=== PATIENT | male | born 1985 | race Caucasian/White ===

== ENCOUNTER 2019-03-31 07:31 | Inpatient (IN) | payer MEDICAID ==
[~2019-03-31] VITALS: Ht 170.2 cm; Wt 71.7 kg
[~2019-03-31 07:31] MED LIST: ALBU8.5H3 IH
[2019-03-31 08:04] LABS: BASOPHILS % (AUTO) 0.9 % (0.0-2.0); EOSINOPHILS % (AUTO) 0.9 % (1.0-6.0); HEMATOCRIT 44.3 % (41-53); HEMOGLOBIN 14.7 g/dL (13.5-17.5); LYMPHOCYTES # (AUTO) 2.5 K/uL (1.0-4.8); MEAN CORPUSCULAR HEMOGLOBIN 31.8 pg (26.0-34.0); MEAN CORPUSCULAR HGB CONC 33.3 G/dL (31.0-37.0); MEAN CORPUSCULAR VOLUME 95 fL (80-100); MONOCYTES # (AUTO) 0.5 K/uL (0.1-1.0); MONOCYTES % (AUTO) 5.9 % (2.0-9.0); NEUTROPHILS # (AUTO) 5.7 K/uL (1.8-7.7); NEUTROPHILS % (AUTO) 64.3 % (40.0-70.0); PLATELET COUNT (AUTO) 283 K/uL (150-450); RED BLOOD CELL COUNT(AUTO) 4.64 MIL/uL (4.50-5.90); RED CELL DISTRIBUTION WIDTH 14.3 % (11.5-14.5)
[2019-03-31 08:12] LABS: ANION GAP 14 mmol/L (8-16); CARBON DIOXIDE 21 mmol/L (22-29); CHLORIDE 102 mmol/L (98-107); GLUCOSE,RANDOM 114 mg/dL (70-110); POTASSIUM 3.7 mmol/L (3.5-5.1); SODIUM SERUM 137 mmol/L (136-145)
[2019-03-31 08:13] LABS: CALCIUM, TOTAL 9.1 mg/dL (8.8-10.5); CREATININE 1.12 mg/dL (0.60-1.30); GLOMERULAR FILTR. RATE CALC > 60 mL/min (>60); UREA NITROGEN, BLOOD 18 mg/dL (7-18)
[2019-03-31 08:18] LABS: ALANINE AMINOTRANSFERASE 44 U/L (12-78); ALBUMIN 4.3 g/dL (3.4-5.0); ALKALINE PHOSPHATASE 68 U/L (46-116); ASPARTATE AMINOTRANSFERASE 17 U/L (15-37); BILIRUBIN,TOTAL 0.5 mg/dL (0.1-1.0); TOTAL PROTEIN, SERUM 7.6 g/dL (6.4-8.2)
[2019-03-31 08:20] LABS: ACETAMINOPHEN < 2 mcg/mL (10-30)
[2019-03-31 08:24] LABS: SALICYLATE 3.2 mg/dL (2.8-20.0)
[2019-03-31] MEDS ORDERED: OLANZapine 5 MG TABLET PO ONE (08:30)
[2019-03-31 08:42] LABS: AMPHET/METH SCREEN,URINE POSITIVE (NEGATIVE); BARBITURATE SCREEN, URINE NEGATIVE (NEGATIVE); BENZODIAZEPINES SCREEN,URINE NEGATIVE (NEGATIVE); CANNABINOID SCREEN,URINE NEGATIVE (NEGATIVE); COCAINE SCREEN,URINE NEGATIVE (NEGATIVE); METHADONE SCREEN, URINE NEGATIVE (NEGATIVE); OPIATE SCREEN,URINE NEGATIVE (NEGATIVE)
[2019-03-31 08:43] LABS: PHENCYCLIDINE SCREEN,URINE NEGATIVE (NEGATIVE)
[2019-03-31] MEDS ORDERED: LORazepam 2 MG TABLET PO ONE (11:45)
[2019-03-31] MEDS ORDERED: MAGNESIUM HYDROXIDE SUSPENSION 30 ML UDCUP PO PRN (13:00)
[2019-03-31] MEDS ORDERED: ZOLPIDEM TARTRATE 10 MG TABLET PO PRN (13:00)
[2019-03-31] MEDS ORDERED: ACETAMINOPHEN 325 MG TABLET PO PRN (13:00)
[2019-03-31] MEDS ORDERED: LOPERAMIDE HCL 2 MG CAPSULE PO PRN (13:00)
[2019-03-31] MEDS ORDERED: TUBERCULIN, PURIFIED PROTEIN DERIVATIVE 5 TU/0.1 ML SYRINGE ID ONE (13:00)
[2019-03-31] MEDS ORDERED: HydrOXYzine PAMOATE 50 MG CAPSULE PO PRN (13:00)
[2019-03-31] MEDS ORDERED: PROMETHAZINE HCL 25 MG TABLET PO PRN (13:00)
[2019-03-31] MEDS ORDERED: MAG HYDROX/AL HYDROX/SIMETH ES 30 ML SUSPENSION UDCUP PO PRN (13:00)
[2019-03-31] MEDS ORDERED: OLANZapine 5 MG RAPDIS TABLET PO PRN (13:00)
[2019-03-31] MEDS ORDERED: GuaiFENesin/D-METHORPHAN [SUGAR-FREE] 200-20MG/10 ML SYRUP UDCUP PO PRN (13:00)
[2019-03-31] MEDS ORDERED: ALBUTEROL SULFATE HFA 90 MCG/PUFF 8 GM INHALER IH PRN (18:45)
[2019-03-31 18:51] VITALS: BP 104/74
[2019-03-31] MEDS: THIAMINE HCL 100 MG TABLET PO SCH (19:40)
[2019-03-31] MEDS: LORazepam 2 MG TABLET PO PRN (19:40)
[2019-03-31] MEDS: OLANZapine 5 MG RAPDIS TABLET PO SCH (21:11)
[2019-04-01 06:30] LABS: HEMOGLOBIN A1C 5.7 % (4.5-6.2)
[2019-04-01 06:45] LABS: CHOL/HDL RATIO 4.2 (4.2-7.3); FREE T4 (FREE THYROXINE) 1.92 ng/dL (0.76-1.46); THYROID STIMULATING HORMONE 0.85 uIU/mL (0.36-3.74)
[2019-04-01] MEDS: FOLIC ACID 1 MG TABLET PO SCH (09:11)
[2019-04-01] MEDS: THIAMINE HCL 100 MG TABLET PO SCH ×2 (09:11→17:18)
[2019-04-01] MEDS: MULTIVITAMINS WITH MINERALS, THERAPEUTIC TABLET PO SCH (09:11)
[2019-04-01] MEDS: NICOTINE 14 MG/24 HOUR PATCH TD SCH (09:12)
[2019-04-01 11:02] VITALS: BP 106/63
[2019-04-01 17:08] VITALS: BP 108/68
[2019-04-01] MEDS: OLANZapine 5 MG RAPDIS TABLET PO SCH (20:07)
[2019-04-02] MEDS: FLUoxetine HCL 20 MG CAPSULE PO SCH (09:52)
[2019-04-02] MEDS: NALTREXONE HCL 50 MG TABLET PO SCH (09:52)
[2019-04-02] MEDS: FOLIC ACID 1 MG TABLET PO SCH (09:52)
[2019-04-02] MEDS: MULTIVITAMINS WITH MINERALS, THERAPEUTIC TABLET PO SCH (09:52)
[2019-04-02] MEDS: THIAMINE HCL 100 MG TABLET PO SCH ×2 (09:53→17:58)
[2019-04-02] MEDS: NICOTINE 14 MG/24 HOUR PATCH TD SCH (09:54)
[2019-04-02] MEDS: LORazepam 2 MG TABLET PO PRN (10:04)
[2019-04-02 10:24] VITALS: BP 117/72
[2019-04-02 16:30] VITALS: BP 118/66
[2019-04-02] MEDS: OLANZapine 5 MG RAPDIS TABLET PO SCH (20:17)
[2019-04-03 09:16] VITALS: BP 116/72
[2019-04-03] MEDS: THIAMINE HCL 100 MG TABLET PO SCH ×2 (09:39→17:02)
[2019-04-03] MEDS: FLUoxetine HCL 20 MG CAPSULE PO SCH (09:39)
[2019-04-03] MEDS: MULTIVITAMINS WITH MINERALS, THERAPEUTIC TABLET PO SCH (09:39)
[2019-04-03] MEDS: NALTREXONE HCL 50 MG TABLET PO SCH (09:39)
[2019-04-03] MEDS: FOLIC ACID 1 MG TABLET PO SCH (09:39)
[2019-04-03] MEDS: NICOTINE 14 MG/24 HOUR PATCH TD SCH (09:40)
[2019-04-03 19:18] VITALS: BP 111/68
[2019-04-03] MEDS: OLANZapine 5 MG RAPDIS TABLET PO SCH (20:50)
[2019-04-04] MEDS: FOLIC ACID 1 MG TABLET PO SCH (09:25)
[2019-04-04] MEDS: MULTIVITAMINS WITH MINERALS, THERAPEUTIC TABLET PO SCH (09:25)
[2019-04-04] MEDS: NALTREXONE HCL 50 MG TABLET PO SCH (09:25)
[2019-04-04] MEDS: THIAMINE HCL 100 MG TABLET PO SCH ×2 (09:25→16:39)
[2019-04-04] MEDS: FLUoxetine HCL 20 MG CAPSULE PO SCH (09:25)
[2019-04-04] MEDS: NICOTINE 14 MG/24 HOUR PATCH TD SCH (09:27)
[2019-04-04 12:10] VITALS: BP 112/61
[2019-04-04 16:56] VITALS: BP 124/80
[2019-04-04] MEDS: OLANZapine 10 MG RAPDIS TABLET PO SCH (20:38)
[2019-04-05] MEDS: FOLIC ACID 1 MG TABLET PO SCH (09:14)
[2019-04-05] MEDS: MULTIVITAMINS WITH MINERALS, THERAPEUTIC TABLET PO SCH (09:14)
[2019-04-05] MEDS: FLUoxetine HCL 20 MG CAPSULE PO SCH (09:14)
[2019-04-05] MEDS: THIAMINE HCL 100 MG TABLET PO SCH ×2 (09:14→16:48)
[2019-04-05] MEDS: NALTREXONE HCL 50 MG TABLET PO SCH (09:14)
[2019-04-05] MEDS: NICOTINE 14 MG/24 HOUR PATCH TD SCH (09:22)
[2019-04-05 09:38] VITALS: BP 113/67
[2019-04-05 16:47] VITALS: BP 107/61
[2019-04-05] MEDS: OLANZapine 10 MG RAPDIS TABLET PO SCH (20:24)
[2019-04-05] MEDS: DiphenhydrAMINE HCL 25 MG CAPSULE PO SCH (21:25)
[2019-04-06] MEDS: FLUoxetine HCL 20 MG CAPSULE PO SCH (09:59)
[2019-04-06] MEDS: FOLIC ACID 1 MG TABLET PO SCH (09:59)
[2019-04-06] MEDS: NALTREXONE HCL 50 MG TABLET PO SCH (09:59)
[2019-04-06] MEDS: THIAMINE HCL 100 MG TABLET PO SCH ×2 (09:59→16:12)
[2019-04-06] MEDS: MULTIVITAMINS WITH MINERALS, THERAPEUTIC TABLET PO SCH (09:59)
[2019-04-06] MEDS: NICOTINE 14 MG/24 HOUR PATCH TD SCH (10:00)
[2019-04-06 10:38] VITALS: BP 110/68
[2019-04-06 16:44] VITALS: BP 125/84
[2019-04-06] MEDS: DiphenhydrAMINE HCL 25 MG CAPSULE PO SCH (20:19)
[2019-04-06] MEDS: OLANZapine 10 MG RAPDIS TABLET PO SCH (20:19)
[2019-04-07] MEDS: MULTIVITAMINS WITH MINERALS, THERAPEUTIC TABLET PO SCH (08:59)
[2019-04-07] MEDS: FOLIC ACID 1 MG TABLET PO SCH (08:59)
[2019-04-07] MEDS: FLUoxetine HCL 20 MG CAPSULE PO SCH (09:00)
[2019-04-07] MEDS: THIAMINE HCL 100 MG TABLET PO SCH (09:00)
[2019-04-07] MEDS: NALTREXONE HCL 50 MG TABLET PO SCH (09:00)
[2019-04-07 09:04] VITALS: BP 129/84
[2019-04-07] MEDS: NICOTINE 14 MG/24 HOUR PATCH TD SCH (09:06)
[2019-04-07] MEDS ORDERED: DIPH25CA85 PO (12:35)
[2019-04-07] MEDS ORDERED: FLUO-191 PO (12:36)
[2019-04-07] MEDS ORDERED: FOLI1 PO (12:36)
[2019-04-07] MEDS ORDERED: MULT-248 PO (12:36)
[2019-04-07] MEDS ORDERED: NICO-703 TD (12:37)
[2019-04-07] MEDS ORDERED: NALT50TA6 PO (12:37)
[2019-04-07] MEDS ORDERED: THIA100T67 PO (12:38)
[2019-04-07] MEDS ORDERED: OLAN10TA3 PO (12:38)
== END 2019-04-07 14:00 | disposition home or self-care (01) | DRG 750 ==
LOC: EMS 07:32 → 3EI 16:35
PROVIDERS: ADMIT Psychiatry & Neurology Psychiatry; ATTEND Psychiatry & Neurology Psychiatry
DX: F25.1 Schizoaffective disorder, depressive type (principal); R45.851 Suicidal ideations; Z91.19 Patient's noncompliance with other medical treatment and regimen; F12.10 Cannabis abuse, uncomplicated; F14.90 Cocaine use, unspecified, uncomplicated; F15.90 Other stimulant use, unspecified, uncomplicated; F17.210 Nicotine dependence, cigarettes, uncomplicated; F41.9 Anxiety disorder, unspecified; J45.909 Unspecified asthma, uncomplicated; Z79.899 Other long term (current) drug therapy
CPT/HCPCS: 83036; 84439; 84443; 86592; 93005; G0480; G0481; J3535

== ENCOUNTER 2021-02-26 00:22 | Emergency (ER) | payer MEDICAID, OTHER ==
[~2021-02-26] VITALS: Ht 170.2 cm; Wt 77.3 kg
[~2021-02-26 00:22] MED LIST changes: -ALBU8.5H3 IH; +DIPH25CA85 PO; +FLUO-191 PO; +FOLI-130 PO; +MULT-248 PO; +NALT50TA6 PO; +NICO-703 TD; +OLAN10TA74 PO; +THIAMINE HCL100 MG PO
[2021-02-26 03:15] VITALS: BP 119/74
[2021-02-26] MEDS ORDERED: LIDOCAINE 2%/EPI 1:200,000/PF 10 ML VIAL ID ONE (03:15)
== END 2021-02-26 04:42 | disposition home or self-care (01) ==
LOC: EMS 00:25
DX: L02.211 Cutaneous abscess of abdominal wall (principal); J45.909 Unspecified asthma, uncomplicated; F14.90 Cocaine use, unspecified, uncomplicated; F19.90 Other psychoactive substance use, unspecified, uncomplicated; F17.210 Nicotine dependence, cigarettes, uncomplicated
CPT/HCPCS: 10060; 99282; J2001; Z7502

== ENCOUNTER 2021-11-20 21:56 | Emergency (ER) | payer OTHER ==
[~2021-11-20] VITALS: Ht 170.2 cm; Wt 65.0 kg
[2021-11-20] MEDS ORDERED: LORazepam 2 MG/ML VIAL IVP ONE (23:15)
[2021-11-20] MEDS ORDERED: SODIUM CHLORIDE 0.9% 2,000 ML IV ONE (23:15)
[2021-11-20 23:23] LABS: BASOPHILS % (AUTO) 1.2 % (0.0-2.0); EOSINOPHILS % (AUTO) 0.2 % (1.0-6.0); HEMATOCRIT 40.1 % (41-53); HEMOGLOBIN 13.8 g/dL (13.5-17.5); LYMPHOCYTES # (AUTO) 3.1 K/uL (1.0-4.8); LYMPHOCYTES % (AUTO) 22.4 % (22.0-44.0); MEAN CORPUSCULAR HEMOGLOBIN 31.3 pg (26.0-34.0); MEAN CORPUSCULAR HGB CONC 34.4 G/dL (31.0-37.0); MEAN CORPUSCULAR VOLUME 91 fL (80-100); MONOCYTES # (AUTO) 0.7 K/uL (0.1-1.0); MONOCYTES % (AUTO) 5.3 % (2.0-9.0); NEUTROPHILS % (AUTO) 70.9 % (40.0-70.0); PLATELET COUNT (AUTO) 279 K/uL (150-450); RED BLOOD CELL COUNT(AUTO) 4.41 MIL/uL (4.50-5.90); RED CELL DISTRIBUTION WIDTH 13.8 % (11.5-14.5)
[2021-11-20 23:35] LABS: ANION GAP 9 mmol/L (8-16); CALCIUM, TOTAL 8.4 mg/dL (8.8-10.5); CARBON DIOXIDE 28 mmol/L (22-29); CHLORIDE 105 mmol/L (98-107); CREATININE 0.99 mg/dL (0.60-1.30); GLOMERULAR FILTR. RATE CALC > 60 mL/min (>60); GLUCOSE,RANDOM 115 mg/dL (70-110); POTASSIUM 3.4 mmol/L (3.5-5.1); SODIUM SERUM 142 mmol/L (136-145); UREA NITROGEN, BLOOD 14 mg/dL (7-18)
[2021-11-20 23:39] LABS: ALANINE AMINOTRANSFERASE 50 U/L (12-78); ALBUMIN 3.8 g/dL (3.4-5.0); ALKALINE PHOSPHATASE 77 U/L (46-116); ASPARTATE AMINOTRANSFERASE 42 U/L (15-37); BILIRUBIN,TOTAL 0.7 mg/dL (0.1-1.0)
[2021-11-21 01:15] LABS: COVID AG,FIA SOURCE NASAL SWAB
[2021-11-21] MEDS ORDERED: POTASSIUM CHLORIDE 10% 40 MEQ/30 ML LIQUID UDCUP PO ONE (01:30)
[2021-11-21] MEDS ORDERED: SODIUM CHLORIDE 0.9% 1,000 ML IV ONE (01:30)
[2021-11-21] MEDS ORDERED: METOPROLOL TARTRATE 25 MG TABLET PO ONE (01:30)
[2021-11-21 02:16] LABS: AMPHET/METH SCREEN,URINE POSITIVE (NEGATIVE); BARBITURATE SCREEN, URINE NEGATIVE (NEGATIVE); BENZODIAZEPINES SCREEN,URINE NEGATIVE (NEGATIVE); CANNABINOID SCREEN,URINE POSITIVE (NEGATIVE); COCAINE SCREEN,URINE POSITIVE (NEGATIVE); METHADONE SCREEN, URINE NEGATIVE (NEGATIVE); OPIATE SCREEN,URINE NEGATIVE (NEGATIVE)
[2021-11-21 02:17] LABS: PHENCYCLIDINE SCREEN,URINE NEGATIVE (NEGATIVE)
[2021-11-21 03:05] VITALS: BP 130/82
[2021-11-21] MEDS ORDERED: ALBUTEROL SULFATE HFA 90 MCG/PUFF 8 GM INHALER IH ONE (03:15)
== END 2021-11-21 03:21 | disposition home or self-care (01) ==
LOC: EMS 21:57
DX: R45.851 Suicidal ideations (principal); R00.0 Tachycardia, unspecified; E86.0 Dehydration; F14.10 Cocaine abuse, uncomplicated; E87.6 Hypokalemia; F15.10 Other stimulant abuse, uncomplicated; J45.909 Unspecified asthma, uncomplicated; F17.210 Nicotine dependence, cigarettes, uncomplicated; Z20.822 Contact with and (suspected) exposure to COVID-19
CPT/HCPCS: 36415; 80053; 80307; 85025; 87426; 93005; 94640; 96361 ×2; 96374; 99285; G0480; J2060; J7030 ×2; J3535